=== PATIENT | male | born 1980 | race Caucasian/White ===

== ENCOUNTER 2022-06-20 05:02 | Day surgery (SDC) | payer BC, OTHER ==
[2022-06-18 13:29] VITALS: BMI 32.4
[2022-06-20] MEDS ORDERED: LIDOCAINE HCL 1%, 10 MG/ML (20ML VIAL) ONE (11:25)
[2022-06-20] MEDS ORDERED: BUPIVACAINE HCL/PF 0.5% (5MG/ML) 10 ML VIAL ONE (11:26)
[2022-06-20] MEDS ORDERED: PROPOFOL 20 ML ONE ×2 (12:56)
[2022-06-20] MEDS ORDERED: MIDAZOLAM HCL 2 MG/2 ML SINGLE DOSE VIAL ONE (12:56)
[2022-06-20] MEDS ORDERED: ceFAZolin SODIUM 1 GM VIAL ONE (13:00)
[2022-06-20] MEDS ORDERED: ceFAZolin SODIUM 1 GM VIAL IVPB ONE (13:07)
[2022-06-20] MEDS ORDERED: LIDOCAINE HCL 1%, 10 MG/ML (20ML VIAL) INF ONE ×2 (13:13)
[2022-06-20] MEDS ORDERED: DEXAMETHASONE SOD PHOSPHATE 4 MG/1 ML VIAL ONE (13:42)
[2022-06-20] MEDS ORDERED: BUPIVACAINE HCL/PF 0.5% (5MG/ML) 10 ML VIAL IJ ONE (14:14)
[2022-06-20] MEDS ORDERED: oxyCODONE HCL 5 MG TABLET PO PRN (14:27)
[2022-06-20] MEDS ORDERED: ONDANSETRON 4 MG/2 ML VIAL IVPUSH PRN (14:27)
[2022-06-20] MEDS ORDERED: KETOROLAC TROMETHAMINE 30 MG/1 ML VIAL IM PRN (14:28)
[2022-06-20] MEDS ORDERED: LACTATED RINGERS SOLUTION 1,000 ML IV SCH (14:30)
[2022-06-20 15:40] VITALS: TEMP 97.2
[2022-06-20 16:17] VITALS: BP 122/74; PULSE 68; RESP 20
== END 2022-06-20 16:45 | disposition home or self-care (01) ==
LOC: JASU-SURG 05:02
PROVIDERS: ATTEND Podiatrist Foot Surgery
PROC: 0LC Tendons, Extirpation (ICD-10-PCS; principal; 2022-06-20 13:00)
DX: M79.5 Residual foreign body in soft tissue (principal)
CPT/HCPCS: 94760

== ENCOUNTER 2025-09-22 12:18 | Day surgery (SDC) | payer BC, OTHER ==
[2025-09-21 11:23] VITALS: BMI 30.9
[2025-09-22 13:59] VITALS: BP 113/70; TEMP 97.6
[2025-09-22 14:26] VITALS: PULSE 72; RESP 20
== END 2025-09-22 14:30 | disposition home or self-care (01) ==
LOC: FASU-ENDO 12:18
PROVIDERS: ATTEND Internal Medicine Gastroenterology
PROC: 0DB98ZX Excision of Duodenum, Via Natural or Artificial Opening Endoscopic, Diagnostic (ICD-10-PCS; 2025-09-22)
PROC: 0DB68ZX Excision of Stomach, Via Natural or Artificial Opening Endoscopic, Diagnostic (ICD-10-PCS; 2025-09-22)
PROC: 0DB48ZX Excision of Esophagogastric Junction, Via Natural or Artificial Opening Endoscopic, Diagnostic (ICD-10-PCS; 2025-09-22)
PROC: 0DJD8ZZ Inspection of Lower Intestinal Tract, Via Natural or Artificial Opening Endoscopic (ICD-10-PCS; principal; 2025-09-22 13:22)
DX: D50.9 Iron deficiency anemia, unspecified (principal); R10.13 Epigastric pain; K31.89 Other diseases of stomach and duodenum; K22.89 Other specified disease of esophagus; K64.1 Second degree hemorrhoids; K64.4 Residual hemorrhoidal skin tags
CPT/HCPCS: 88305-TC; 88342-TC